=== PATIENT | male | born 1970 | race Two or more races ===

== ENCOUNTER 2018-02-07 11:38 | Emergency (ER) | payer SELFPAY ==
[~2018-02-07] VITALS: Ht 167.6 cm; Wt 85.3 kg
[2018-02-07 11:53] VITALS: Ht 167.6 cm; Wt 85.3 kg
[2018-02-07 12:26] LABS: microscopic required? NO
[2018-02-07 12:28] LABS: BASOPHIL % 0.2 % (0-2); PLATELET COUNT 247 x10^3mcL (130-400); RED CELL DISTRIBUTION WIDTH 13.6 % (11.5-14.5)
[2018-02-07 12:37] LABS: CALCIUM 8.2 mg/dL (8.5-10.1); CARBON DIOXIDE 26.4 mmol/L (21-32); CHLORIDE SERUM 103 mmol/L (98-107); CREATININE SERUM 0.7 mg/dL (0.7-1.3); GFR1 > 60 mL/min; GLUCOSE SERUM 92 mg/dL (74-106); POTASSIUM SERUM 3.9 mmol/L (3.5-5.1); SODIUM SERUM 135 mmol/L (136-145)
[2018-02-07 12:48] LABS: ALBUMIN 3.6 g/dL (3.4-5.0); ALKALINE PHOSPHATASE 90 U/L (46-116); ALT/SGPT 29 U/L (16-63); AST/SGOT 16 U/L (15-37); BILIRUBIN TOTAL 0.34 mg/dL (0.20-1.00); C REACTIVE PROTEIN 0.3 mg/dL (<=0.9)
[2018-02-07 12:54] LABS: CK-MB 1.8 ng/mL (0-3.6)
[2018-02-07 12:56] LABS: FREE T4 0.83 ng/dL (0.76-1.46); FREE THYROXINE INDEX 1.9 ug/dL (1.4-4.5); T4(THYROXINE) 5.8 ug/dL (4.7-13.3)
[2018-02-07 13:08] LABS: urine erythrocyte NEGATIVE (NEGATIVE)
[2018-02-07 13:40] LABS: T3 TOTAL 0.9 ng/mL
[2018-02-07 14:28] LABS: ERYTHROCYTE SED RATE 10 mm/hr (0-15)
[2018-02-07 15:10] VITALS: BP 120/76
== END 2018-02-07 15:10 | disposition home or self-care (01) ==
LOC: ED 11:38
PROVIDERS: Specialist
DX: J18.9 Pneumonia, unspecified organism (principal)
CPT/HCPCS: 36600; 83880; 84439; J1885; J2405; J3010; J7030; J7620; Q0092